=== PATIENT | male | born 1990 | race Caucasian/White ===

== ENCOUNTER 2025-06-01 05:12 | Emergency (ER) | payer BC, SELFPAY ==
[2025-06-01 05:15] VITALS: BP 169/100
[2025-06-01 05:57] VITALS: BP 142/86
[2025-06-01 06:00] VITALS: BP 144/91
[2025-06-01 06:10] LABS: Hematocrit 52.4 % (39.0-52.0); Hemoglobin 17.6 g/dL (13.0-18.0); Mean Corp Hgb Conc. 33.6 g/dL (33.0-37.0); Mean Corpuscular Volume 82.9 fL (80.0-94.0); Nucleated Red Blood Cells % 0 % (-); Platelet Count 233 10^3/uL (130-400); Red Cell Dist. Width 14.5 % (11.5-14.5)
--- NOTE | 2025-06-01 06:18 | ED.GENMED ---
History of Present Illness
General
Chief Complaint: Headache
Source: patient
Exam Limitations: none
Time Seen by Provider: 06/01/25 06:17
History of Present Illness
History of Present Illness:
34yoM with no significant past medical history presenting for evaluation of jaw pain. Patient woke up with pain underneath the left jaw 3 days ago. He denies any trauma or inciting incident. Pain has been constant since that time and he describes
this as feeling like he was punched in the area. Nothing seems to make the pain better or worse. He denies any pain with jaw opening. He has been taking Tylenol and ibuprofen which gives temporary relief for about an hour. He was seen by his PCP
yesterday for the symptoms who started him on amoxicillin. He has taken 1 dose thus far. He was also given a prescription to have an ultrasound done for an enlarged lymph node which she has not scheduled yet. He woke up this morning and pain
started to radiate to the left yarsani area and he decided to come to the ED. He denies any fevers, chills, dental pain, ear pain, skin changes, chest pain, shortness of breath.
Past History
Past History
ED Past Medical History: Hypercholesterolemia and Other (Obstructive sleep apnea, obesity)
ED Past Surgical History: None
Social History
Tobacco: Smoker (Cigars)
Alcohol: None
Living: with family
Employment: Employed
Family History
Family History: Hypertension and Other (Father with history of atrial fibrillation.); Negative Early CAD or Sudden
Phy Exam
General Physical Exam
General Presentation: well appearing and no apparent distress
General Skin: warm and dry
General Habitus: normal
General Mental: alert
ENT Exam
ENT Exam: TM's normal, pharynx normal, normocephalic and other (+Tenderness to inferior aspect of L jaw. Mild swelling noted. No skin changes. No dental tenderness or apical abscess noted. No tenderness at TM joint. )
Eye Exam
Eye Exam: PERRL and conjunctiva normal
Cardiovascular Exam
Cardiovascular Exam: regular rate/rhythm and no murmur
Pulmonary Exam
Pulmonary Exam: lungs clear, no respiratory distress, no rales, no crackles, no rhonchi and no wheezing
Neurological Exam
Neurological Exam: alert
[place] Coma Scale
Eye Opening: Spontaneous
Verbal Response: Oriented
Motor Response: Obeys Commands
GCS Total Score: 15
Skin Exam
Skin Exam: normal color and warm/dry
Psychiatric Exam
Psychiatric Exam: normal mood/affect
Course
Orders/Labs/Results
Orders:
Orders
06/01/25 05:49
EKG [Electrocardiogram (*1)] Urgent
Reason for Study: Other
Other Reason for Exam: jaw pain
06/01/25 05:50
EKG- Treatment ONCE
06/01/25 05:58
Complete Blood Count/With Diff Urgent
Comprehensive Metabolic Panel Urgent
Troponin I Urgent
06/01/25 06:28
CT Neck With Iv Contrast Urgent
Comment:
Reason For Exam: L jaw/submandibular pain
Ketorolac [Toradol] 15 mg IV NOW STA
06/01/25 08:25
Ketorolac [Toradol] 15 mg IV NOW STA
Abnormal Lab Results
06/01/25
05:58
WBC 12.0 H 10^3/uL
(4.8-10.8)
RBC 6.32 H 10^6/uL
(4.70-6.10)
Hct 52.4 H %
(39.0-52.0)
Abs Immat Gran (auto) 0.1 H 10^3/uL
(0-0.05)
Absolute Neuts (auto) 8.3 H 10^3/uL
(1.4-6.5)
Absolute Monos (auto) 0.8 H 10^3/uL
(0.1-0.6)
Immature Gran % 0.6 H %
(0-0.5)
Glucose 107 H mg/dl
(70-99)
06/01/25 05:58
06/01/25 05:58
Vital Signs
Initial and Last Documented VS:
Initial Vital Signs
Temp Pulse Resp BP Pulse Ox
97.4 F 85 22 169/100 99
06/01/25 05:15 06/01/25 05:15 06/01/25 05:15 06/01/25 05:15 06/01/25 05:15
Last Documented Vital Signs
Temp Pulse Resp BP Pulse Ox
97.4 F 59 19 139/85 96
06/01/25 05:15 06/01/25 07:00 06/01/25 07:00 06/01/25 07:00 06/01/25 07:04
MDM/Problems Addressed
Differential Diagnosis Includes:
34yoM here with atraumatic L jaw pain x 3 days. Started on amoxil by PCP yesterday. Now with L sided headache today. Denies dental pain. No f/c. No CP/SOB. There is tenderness to the L mandible/submandibular area on exam with mild swelling. No skin
changes. No TMJ tenderness. Differential diagnosis includes but is not limited to: cervical lymphadenopathy, dental infection, trigeminal neuralgia, TMJ, early shingles, doubt Sanjeev's
Initial ED plan: Cardiac workup initiated by nursing staff prior to initial exam. EKG shows NSR without ischemic changes. Will check CT neck. IV Toradol for pain.
*Pulse Oximetry
SaO2: 97
Oxygen Mode of Delivery: Room air
Patient hypoxic: no
*EKG
Interpreted by ED Provider?: Yes
EKG Intrepretation Date: 06/01/25
Heart Rate: 68
Rate: normal
Rhythm: sinus
[place]: normal axis
Interval: normal interval
QRS Pattern: right bundle branch block (incomplete)
Ischemia: no ischemia
*Critical Care Note
Total Time (30-74mins, 75-104mins- exclusive of procedures): Not Applicable
Update Note
Update Note:
Labs reveal a leukocytosis with a WBC of 12 which is nonspecific. Troponin WNL. CT shows findings suggestive of tonsillitis/pharyngitis which does not correlate with symptoms as he has no sore throat. Submandibular space is intact. Small bilateral
cervical chain lymph nodes noted. Unclear etiology of symptoms. He was advised to continue amoxicillin and monitor the area for a rash. He was advised to f/u with PCP and ENT. ED return precautions reviewed. Patient in agreement with plan and was
discharged in stable condition.
ED Attending Note
-
Portions of this chart may have been created with voice recognition software.� Occasional wrong word or��sound alike� substitutions may have occurred due to the inherent limitations of voice recognition software.
Discharge Plan
Departure
Patient Disposition: Home (Routine Discharge)
Date of Disposition: 06/01/25
Time of Disposition: 08:25
Patient with high blood pressure during this ER visit?: No
Discharge Problem:
Jaw pain
Instructions: Headache in adults - ED (DC)
Prescriptions:
No Action
amoxicillin
1 tab PO . DIRECTED
Referrals:
PRIVATE,PHYSICIAN [Family Provider, Internal Medicine]
Celeste Gonzalez MD [Active, Otology]
Activity Restrictions/Additional Instructions:
Continue amoxicillin as prescribed by your family doctor. Continue taking Tylenol and ibuprofen as needed for pain.
Monitor the area for a rash.
Please call today to schedule follow-up appointments with your family doctor and ENT.
Return to the ER with any new or worsening symptoms.
Interventions
Interventions:
*Risk Screen - Suicide Last Done: 06/01/25 05:15
*General Assessment Last Done: 06/01/25 05:47
*Neglect/Abuse Screening Last Done: 06/01/25 05:15
*ED- Fall Risk Assessment Last Done: 06/01/25 05:47
*ED COVID-19 Vaccine History Last Done: 06/01/25 05:47
ED- Neurological Assessment Last Done: 06/01/25 07:04
Discharge Date and Time
Print Language: SAMOAN
[2025-06-01] MEDS: TORADOL 15 MG IV ×2 (06:32→08:31)
[2025-06-01 06:35] LABS: ALT (SGPT) 23 U/L (0-50); AST (SGOT) 20 U/L (17-59); Albumin 4.2 g/dl (3.5-5.0); Alkaline Phosphatase 89 U/L (38-126); Blood Urea Nitrogen 12 mg/dl (9-20); Calcium 8.9 mg/dl (8.4-10.2); Carbon Dioxide 27 mmol/L (22-30); Chloride 106 mmol/L (98-107); Glucose 107 mg/dl (70-99); Potassium 4.6 mmol/L (3.5-5.1); Sodium 140 mmol/L (135-145); Total Protein 6.9 g/dl (6.3-8.2); eGFR > 60.00
[2025-06-01 06:46] LABS: Troponin I < 0.012 ng/ml
[2025-06-01 07:00] VITALS: BP 139/85
== END 2025-06-01 08:46 | disposition home or self-care (01) ==
LOC: EMR 05:12
PROVIDERS: Emergency Medicine; EMERGENCY PHYSICIAN Emergency Medicine
DX: R68.84 Jaw pain (principal); I45.10 Unspecified right bundle-branch block; D72.829 Elevated white blood cell count, unspecified; E78.00 Pure hypercholesterolemia, unspecified; G47.33 Obstructive sleep apnea (adult) (pediatric); E66.9 Obesity, unspecified; F17.290 Nicotine dependence, other tobacco product, uncomplicated; Z82.49 Family history of ischemic heart disease and other diseases of the circulatory system
CPT/HCPCS: 99284; 96374; 96376; 70491; 80053; 84484; 85025; 93005; Q9967